=== PATIENT | male | born 1940 | race Asian ===

== ENCOUNTER 2019-06-03 04:06 | Emergency (ER) | payer MEDICARE, OTHER ==
[~2019-06-03] VITALS: Ht 170.2 cm; Wt 81.6 kg
[2019-06-03 04:10] VITALS: BP 133/81
--- NOTE | 2019-06-03 04:10 | NUR ---
ED Nurse Note: PT DAISYA RA 29 FROM HOME C/O ABD PAIN SINCE 89. PT STATES DIARRHEA PRIOR TO PAIN AND C/O NAUSEA. PT DENIES VOMITTING. VSS, NAD. FAMILY AT BEDSIDE, ERMD AT BEDSIDE
--- NOTE | 2019-06-03 04:15 | NUR ---
ED Nurse Note: blood drawn and sent to lab
[2019-06-03] MEDS ORDERED: ALLOPURINOL300 M1 ORAL (04:17)
[2019-06-03] MEDS ORDERED: ASPIR 8181 MG ORAL (04:17)
[2019-06-03] MEDS ORDERED: LIPITOR10 MG ORAL (04:17)
[2019-06-03] MEDS ORDERED: METFORMIN HCL500 M1 ORAL (04:17)
[2019-06-03] MEDS ORDERED: BENICAR20 MG ORAL (04:17)
[2019-06-03] MEDS ORDERED: NAMENDA10 MG ORAL (04:17)
[2019-06-03] MEDS ORDERED: TRADJENTA5 MG PO (04:17)
--- NOTE | 2019-06-03 04:21 | Emergency Room Report ---
History of Present Illness General Chief Complaint: Abdominal Pain Source: Patient, Family Member Present Illness HPI This is a 78-year-old Chinese speaking male with history of hypertension and diabetes. He presents with complaint abdominal pain. This about 3 hours ago. Woke him up from sleep. Pain is to the right side. He has nausea but no vomiting. Has diarrhea. No fever or chills. Pain is sharp. 9 out of 10. Worse with palpation. Better with rest. Never had this problem before. Denies any chest pain. Allergies: Coded Allergies: No Known Allergies (Unverified , 06/03/19) Patient History Past Medical History: see triage record, old chart reviewed, DM, HTN Past Surgical History: none Pertinent Family History: none Social History: Denies: smoking Immunizations: other Reviewed Nursing Documentation: PMH: Agreed; PSxH: Agreed Nursing Documentation-PMH Hx Cardiac Problems: Yes - HDL Hx Diabetes: Yes Review of Systems Eye: Denies: eye pain, blurred vision ENT: Denies: ear pain, nose congestion, throat swelling Respiratory: Denies: cough, shortness of breath Cardiovascular: Denies: chest pain, palpitations Gastrointestinal: Reports: abdominal pain, diarrhea, nausea; Denies: vomiting Musculoskeletal: Denies: back pain, joint pain Skin: Denies: rash Neurological: Denies: headache, numbness Endocrine: Denies: increased thirst, increased urine Hematologic/Lymphatic: Denies: easy bruising All Other Systems: negative except mentioned in HPI Physical Exam Vital Signs Date Time Temp Pulse Resp B/P (MAP) Pulse Ox O2 Delivery O2 Flow Rate FiO2 06/03/19 04:08 98.4 60 14 136/84 (101) 98 Room Air Vitals normal Sp02 EP Interpretation: reviewed, normal General Appearance: well appearing, no apparent distress, alert Head: normocephalic, atraumatic Eyes: bilateral eye PERRL, bilateral eye EOMI ENT: hearing grossly normal, normal pharynx Neck: full range of motion, supple, no meningismus Respiratory: chest non-tender, lungs clear, normal breath sounds Cardiovascular #1: regular rate, rhythm, no murmur Gastrointestinal: normal bowel sounds, no mass, no organomegaly, no bruit, non- distended, tenderness - Tenderness to the right upper quadrant with guarding. Musculoskeletal: back normal, normal range of motion, gait/station normal Psychiatric: mood/affect normal Medical Decision Making Diagnostic Impression: Primary Impression: Cholelithiasis Qualified Codes: K80.20 - Calculus of gallbladder without cholecystitis without obstruction Additional Impression: Biliary colic ER Course Patient presents with abdominal pain with biliary colic. CT scan show gallstones and sludge. Labs unremarkable. No evidence of cholecystitis or obstruction. No evidence of pancreatitis. He is pain-free now. Will discharge home with outpatient referral for surgery. EKG Diagnostic Results Rate: normal Rhythm: NSR ST Segments: no acute changes Rhythm Strip Diag. Results EP Interpretation: yes Rate: 79 Rhythm: NSR, no PVC's, no ectopy CT/MRI/US Diagnostic Results CT/MRI/US Diagnostic Results : Imaging Test Ordered: CT abdomen pelvis Impression Read by radiologist. Gallbladder distention with stone and sludge. Last Vital Signs Date Time Temp Pulse Resp B/P (MAP) Pulse Ox O2 Delivery O2 Flow Rate FiO2 06/03/19 04:08 98.4 60 14 136/84 (101) 98 Room Air Status: improved Disposition: HOME, SELF-CARE Condition: Stable Scripts Acetaminophen With Codeine (T#3) (TYLENOL #3 TAB*) Y Tab 1 TAB ORAL Q8H PRN for For Pain, #20 TAB Prov: Benoit Fitzgerald MD 06/03/19 Additional Instructions: Follow-up with your doctor in a week. You may need a referral to see a surgeon. Return if symptoms worsen. Benoit Fitzgerald MD Jun 03, 2019 04:21
[2019-06-03 04:29] LABS: BASOPHILS % (AUTO) 0.7 % (0.0-2.0); EOSINOPHILS % (AUTO) 1.7 % (0.0-3.0); HEMATOCRIT 41.3 % (42.0-52.0); HEMOGLOBIN 14.8 G/DL (14.2-18.0); LYMPHOCYTES % (AUTO) 40.7 % (20.0-45.0); MEAN CORPUSCULAR VOLUME 94 FL (80-99); MONOCYTES % (AUTO) 8.9 % (1.0-10.0); PLATELET COUNT 175 K/UL (150-450); RED CELL DISTRIBUTION WIDTH 10.6 % (11.6-14.8); WHITE BLOOD COUNT 8.1 K/UL (4.8-10.8)
[2019-06-03] MEDS ORDERED: Morphine Sulfate 2mg/ml Inj(IV/IM USE ONLY) IVP ONE (04:30)
--- NOTE | 2019-06-03 04:30 | NUR ---
ED Nurse Note: pt went for ct
[2019-06-03 04:33] LABS: ANION GAP 9 mmol/L (5-15); BLOOD UREA NITROGEN 20 mg/dL (7-18); CALCIUM 9.3 MG/DL (8.5-10.1); CARBON DIOXIDE 29 MMOL/L (21-32); CHLORIDE 103 MMOL/L (98-107); CREATININE 1.2 MG/DL (0.55-1.30); POTASSIUM 3.6 MMOL/L (3.5-5.1); SODIUM 141 MMOL/L (136-145)
[2019-06-03 04:39] LABS: ALANINE AMINOTRANSFERASE 37 U/L (12-78); ALBUMIN 3.7 G/DL (3.4-5.0); ALBUMIN/GLOBULIN RATIO 1.1 (1.0-2.7); ALKALINE PHOSPHATASE 53 U/L (46-116); ASPARTATE AMINO TRANSFERASE 29 U/L (15-37); BILIRUBIN,TOTAL 0.5 MG/DL (0.2-1.0)
--- NOTE | 2019-06-03 04:41 | NUR ---
ED Nurse Note: pt back from ct
--- NOTE | 2019-06-03 05:20 | Diagnostic Imaging Report ---
INDICATION: Abdominal pain TECHNIQUE: Continuous helical transaxial imaging of the abdomen and pelvis was obtained from the lung bases to the pubic symphysis. No intravenous contrast was administered. Coronal 2-D reformats were also obtained. Automatic Exposure Control was utilized. Total Dose length Product (DLP): 533.[address] Dose Index Volume (CTDIvol): 9 mGy Comparison: none FINDINGS: Lungs: Groundglass opacities and some reticular densities likely atelectasis noted. The heart is prominent in size.. Liver: Unremarkable Gallbladder/biliary system: Gallbladder is distended. There are gallstones present. No biliary ductal dilatation is appreciated.. Spleen: Unremarkable. Accessory spleen noted. Pancreas: Unremarkable Kidneys/Bladder: Suggestion of multiple cysts bilaterally mostly in the left kidney. There is also a contour deformity of the anterior part of the left kidney suggestive of underlying mass measuring about 2.5 cm. (e.g. image 93/series axial 4). Differential includes a proteinaceous or hemorrhagic cyst as the lesion is isoattenuated to the renal parenchyma. Further evaluation with a contrast-enhanced CT or MRI is recommended. Mild thickening of the wall the urinary bladder noted. Adrenal glands: Unremarkable Bowel: Appendix is normal. There is no evidence of bowel obstruction. Few diverticula noted in the colon. Aorta/IVC: Tortuosity and moderate mural calcification of the aorta and iliac arteries noted. Peritoneum: There is no free fluid. Bones: There is narrowing of intervertebral discs and accompanying endplate osteophyte formation. Hypertrophied facet joints also demonstrated. Bones are osteopenic. IMPRESSION: Cholelithiasis. Possible 2.5 cm left renal mass. Further evaluation with contrast-enhanced CT is recommended. Multiple bilateral renal cysts. Arterial vascular disease Basal atelectasis Accessory spleen Degenerative changes of the spine and generalized osteopenia. Discrepancy with the preliminary reading by [facility] is noted. The preliminary report made no mention of the left renal mass. Final report and recommendations provided to the emergency department and Dr. Virk at 8:46 AM, 06/03/2019. Note: Evaluation of solid organs is limited on non contrast imaging. The CT scanner at [facility] is accredited by the [employer] and the scans are performed using dose optimization techniques as appropriate to a performed exam including Automatic Exposure control.
[2019-06-03] MEDS ORDERED: ACETAMINOPHEN-1 EAC1 ORAL (05:50)
[2019-06-03 05:52] LABS: APPEARANCE,URINE CLEAR; BILIRUBIN, URINE NEGATIVE (NEGATIVE); COLOR,URINE PALE YELLOW; GLUCOSE, URINE (UA) NEGATIVE (NEGATIVE); KETONES,URINE NEGATIVE (NEGATIVE); LEUKOCYTE ESTERASE ,URINE NEGATIVE (NEGATIVE); NITRITE,URINE NEGATIVE (NEGATIVE); PH,URINE 5 (4.5-8.0); PROTEIN,URINE NEGATIVE (NEGATIVE); UROBILINOGEN,URINE NORMAL MG/DL (0.0-1.0)
[2019-06-03 06:05] VITALS: BP 138/88
--- NOTE | 2019-06-03 06:05 | NUR ---
ER DISCHARGE NOTE: Patient is cleared to be discharged per ERMD, pt is aox4, on room air, with stable vital signs. pt was given dc and prescription instructions, pt was able to verbalize understanding, pt id band and iv site removed without complications. pt is able to ambulate with steady gait. pt took all belongings.
== END 2019-06-03 06:05 | disposition home or self-care (01) ==
LOC: EDBD 04:06 → EMR 04:33
DX: K80.20 Calculus of gallbladder without cholecystitis without obstruction (principal); E11.9 Type 2 diabetes mellitus without complications; E78.5 Hyperlipidemia, unspecified; I10 Essential (primary) hypertension
CPT/HCPCS: 36415; 74176; 80053; 81003; 83690; 84484; 85025; 96361; 96374; 96375; 99284; J2270; J2405; J7030